=== PATIENT | female | born 1990 | race African-American/Black ===

== ENCOUNTER 2018-12-05 18:19 | Emergency (ER) | payer OTHER ==
[~2018-12-05] VITALS: Ht 160 cm; Wt 71.2 kg
[2018-12-05] MEDS ORDERED: Acetaminophen 500mg (ES) tab ORAL ONE (18:45)
[2018-12-05] MEDS ORDERED: DiphenhydrAMINE 50mg/ml Inj IVP ONE (18:45)
[2018-12-05] MEDS ORDERED: Metoclopramide 10mg/2ml Inj IVP ONE (18:45)
--- NOTE | 2018-12-05 18:45 | NUR ---
ED Nurse Note: PT WALKED IN C/O RLQ ABD PAIN STARTED TODAY, PT REPORTS SHE HAS BEEN GETTING TREATED FOR UTI. PT AA&OX4, GCS=15, SKIN WARM AND DRY, RESP EVEN AND UNLABORED, DENIES CONSTIPATION, REPORTS NAUSEA BUT NO ACTIVE VOMITING NOR DIARRHEA, AMBULATORY W/ STEADY GAIT, VSS, WILL CONT MONITOR.
[2018-12-05 18:53] LABS: APPEARANCE,URINE CLEAR; BILIRUBIN, URINE NEGATIVE (NEGATIVE); COLOR,URINE YELLOW; GLUCOSE, URINE (UA) NEGATIVE (NEGATIVE); KETONES,URINE NEGATIVE (NEGATIVE); LEUKOCYTE ESTERASE ,URINE 2+ (NEGATIVE); NITRITE,URINE NEGATIVE (NEGATIVE); PH,URINE 8 (4.5-8.0); PROTEIN,URINE NEGATIVE (NEGATIVE); UROBILINOGEN,URINE NORMAL MG/DL (0.0-1.0)
[2018-12-05 18:54] LABS: EOSINOPHILS % (AUTO) 3.2 % (0.0-3.0); HEMATOCRIT 35.4 % (37.0-47.0); HEMOGLOBIN 11.8 G/DL (12.0-16.0); LYMPHOCYTES % (AUTO) 18.5 % (20.0-45.0); MEAN CORPUSCULAR VOLUME 93 FL (80-99); MONOCYTES % (AUTO) 4.7 % (1.0-10.0); NEUTROPHILS % (AUTO) 71.6 % (45.0-75.0); PLATELET COUNT 348 K/UL (150-450); RED CELL DISTRIBUTION WIDTH 11.7 % (11.6-14.8); WHITE BLOOD COUNT 7.2 K/UL (4.8-10.8)
--- NOTE | 2018-12-05 18:55 | Emergency Room Report ---
History of Present Illness General Chief Complaint: Abdominal Pain Source: Patient Present Illness HPI 27-year-old female recently diagnosed with UTI, taking Macrobid, presents with suprapubic pain x1 day, no aggravating alleviating factors, pain is mild, described as sharp/achy, no radiation, no chest pain, shortness of breath, patient presents for evaluation Allergies: Coded Allergies: No Known Allergies (Unverified , 12/05/18) Patient History Past Medical History: see triage record Social History: Reports: drug use - Marijuana Last Menstrual Period: 11/18/18 Reviewed Nursing Documentation: PMH: Agreed; PSxH: Agreed Nursing Documentation-PMH Past Medical History: No Stated History Review of Systems Gastrointestinal: Reports: abdominal pain Genitourinary: Reports: dysuria, frequency All Other Systems: negative except mentioned in HPI Physical Exam Vital Signs Date Time Temp Pulse Resp B/P (MAP) Pulse Ox O2 Delivery O2 Flow Rate FiO2 12/05/18 18:28 98.4 86 18 104/51 (68) 95 Room Air Sp02 EP Interpretation: reviewed, normal General Appearance: well appearing, no apparent distress, alert Head: normocephalic, atraumatic Eyes: bilateral eye PERRL, bilateral eye EOMI ENT: uvula midline, moist mucus membranes Neck: supple, thyroid normal, supple/symm/no masses Respiratory: lungs clear, no respiratory distress, no retraction, no accessory muscle use Cardiovascular #1: normal peripheral pulses, regular rate, rhythm, no edema, no gallop, no murmur Gastrointestinal: soft, no guarding, no rebound, tenderness - Mild suprapubic tenderness, no CVA tenderness Musculoskeletal: normal inspection Neurologic: alert, oriented x3 Psychiatric: mood/affect normal Skin: no rash, warm/dry Medical Decision Making Diagnostic Impression: Primary Impression: UTI (urinary tract infection) Additional Impressions: Abdominal pain Fibroids ER Course 27-year-old female presents with suprapubic pain, on the differential includes UTI, appendicitis, fibroids, ovarian cyst Patient In no acute distress, pain is well controlled, repeat abdominal exams, patient's abdomen remains soft, CT abdomen pelvis shows fibroids, ultrasound is unremarkable as well Disposition home with return precautions, patient counseled to follow-up with OB /[employer] Laboratory Tests Test 12/05/18 17:34 12/05/18 18:34 Urine Color Yellow Urine Appearance Clear Urine pH 8 (4.5-8.0) Urine Specific [place] 1.010 (1.005-1.035) Urine Protein Negative (NEGATIVE) Urine Glucose (UA) Negative (NEGATIVE) Urine Ketones Negative (NEGATIVE) Urine Blood Negative (NEGATIVE) Urine Nitrite Negative (NEGATIVE) Urine Bilirubin Negative (NEGATIVE) Urine Urobilinogen Normal MG/DL (0.0-1.0) Urine Leukocyte Esterase 2+ (NEGATIVE) H Urine RBC 0 /HPF (0 - 2) Urine WBC 2-4 /HPF (0 - 2) Urine Squamous Epithelial Cells Few /LPF (NONE/OCC) Urine Bacteria Few /HPF (NONE) Urine HCG, Qualitative Negative (NEGATIVE) Urine Opiates Screen Negative (NEGATIVE) Urine Barbiturates Screen Negative (NEGATIVE) Phencyclidine (PCP) Screen Negative (NEGATIVE) Urine Amphetamines Screen Negative (NEGATIVE) Urine Benzodiazepines Screen Negative (NEGATIVE) Urine Cocaine Screen Negative (NEGATIVE) Urine Marijuana (THC) Screen Positive (NEGATIVE) H White Blood Count 7.2 K/UL (4.8-10.8) Red Blood Count 3.80 M/UL (4.20-5.40) L Hemoglobin 11.8 G/DL (12.0-16.0) L Hematocrit 35.4 % (37.0-47.0) L Mean Corpuscular Volume 93 FL (80-99) Mean Corpuscular Hemoglobin 31.1 PG (27.0-31.0) H Mean Corpuscular Hemoglobin Concent 33.3 G/DL (32.0-36.0) Red Cell Distribution Width 11.7 % (11.6-14.8) Platelet Count 348 K/UL (150-450) Mean Platelet Volume 6.4 FL (6.5-10.1) L Neutrophils (%) (Auto) 71.6 % (45.0-75.0) Lymphocytes (%) (Auto) 18.5 % (20.0-45.0) L Monocytes (%) (Auto) 4.7 % (1.0-10.0) Eosinophils (%) (Auto) 3.2 % (0.0-3.0) H Basophils (%) (Auto) 2.0 % (0.0-2.0) Sodium Level 136 MMOL/L (136-145) Potassium Level 4.1 MMOL/L (3.5-5.1) Chloride Level 103 MMOL/L (98-107) Carbon Dioxide Level 27 MMOL/L (21-32) Anion Gap 6 mmol/L (5-15) Blood Urea Nitrogen 11 mg/dL (7-18) Creatinine 0.8 MG/DL (0.55-1.30) Estimate Glomerular Filtration Rate > 60 mL/min (>60) Glucose Level 108 MG/DL (74-106) H Calcium Level 9.1 MG/DL (8.5-10.1) Total Bilirubin 0.2 MG/DL (0.2-1.0) Aspartate Amino Transferase (AST) 21 U/L (15-37) Alanine Aminotransferase (ALT) 31 U/L (12-78) Alkaline Phosphatase 79 U/L (46-116) Total Protein 7.2 G/DL (6.4-8.2) Albumin 3.7 G/DL (3.4-5.0) Globulin 3.5 g/dL Albumin/Globulin Ratio 1.1 (1.0-2.7) Lipase 110 U/L (73-393) Human Chorionic Gonadotropin, Quant 1 mIU/mL (1-6) CT/MRI/US Diagnostic Results CT/MRI/US Diagnostic Results : Impression CT Abdomen and pelvis: Multiple large fibroids up to 7 cm Pelvic US: Multiple large fibroids no acute processes Last Vital Signs Date Time Temp Pulse Resp B/P (MAP) Pulse Ox O2 Delivery O2 Flow Rate FiO2 12/05/18 18:28 98.4 86 18 104/51 (68) 95 Room Air Disposition: HOME, SELF-CARE Condition: Stable Scripts Naproxen* (NAPROSYN*) 250 Mg Tablet 250 MG ORAL BID PRN for For Pain, #20 TAB 0 Refills Prov: Dank Paige MD 12/05/18 Referrals: [facility] Patient Instructions: Abdominal Pain, Adult, Urinary Tract Infection, Easy-to- Read, Uterine Fibroids Additional Instructions: The patient was provided with discharge instructions, notified to follow-up with a primary care doctor and or specialist in the next 24-48 hours, and to return to the ED if they have worsening of their symptoms. Please note that this report is being documented using eJamming technology. This can lead to erroneous entry secondary to incorrect interpretation by the dictating instrument. Dank Paige MD Dec 05, 2018 18:55
[2018-12-05] MEDS ORDERED: Ketorolac 30mg Inj ONE (18:57)
[2018-12-05] MEDS ORDERED: Ketorolac 30mg Inj IV ONE (19:00)
[2018-12-05 19:02] LABS: ANION GAP 6 mmol/L (5-15); BLOOD UREA NITROGEN 11 mg/dL (7-18); CALCIUM 9.1 MG/DL (8.5-10.1); CARBON DIOXIDE 27 MMOL/L (21-32); CHLORIDE 103 MMOL/L (98-107); CREATININE 0.8 MG/DL (0.55-1.30); POTASSIUM 4.1 MMOL/L (3.5-5.1); SODIUM 136 MMOL/L (136-145)
[2018-12-05 19:07] LABS: ALANINE AMINOTRANSFERASE 31 U/L (12-78); ALBUMIN 3.7 G/DL (3.4-5.0); ALBUMIN/GLOBULIN RATIO 1.1 (1.0-2.7); ALKALINE PHOSPHATASE 79 U/L (46-116); ASPARTATE AMINO TRANSFERASE 21 U/L (15-37); BILIRUBIN,TOTAL 0.2 MG/DL (0.2-1.0)
[2018-12-05 19:09] VITALS: BP 107/59
[2018-12-05] MEDS ORDERED: Isovue-300 100ml vial INJ PRN (19:30)
--- NOTE | 2018-12-05 19:50 | NUR ---
ED Nurse Note: PT RESTING AT THIS TIME, VSS, BED LOWEST POSITION, WARM BLANKET PROVIDED FOR COMFORT, WILL CONT MONITOR.
[2018-12-05 21:53] VITALS: BP 108/75
--- NOTE | 2018-12-05 21:53 | NUR ---
Note eric in EDM - 12/06/18 at 0246 by [email or web address] ED Nurse Note: PT CLEARED TO BE D/C PER ERMD, PT DISCHARGE AND AFTERCARE INSTRUCTION PROVIDED W/ PRESCRIPTION, PT EDUCATION DONE VIA DISCUSSION AND HANDOUT, PT ADVISED TO FOLLOW UP WITH PCP OR RETURN TO ED IF CHANGES IN CONDITION, VSS, AMBULATORY W/ STEADY GAIT, LEFT W/ ALL BELONGINGS, IV D/C AND ID BAND REMOVED.
--- NOTE | 2018-12-05 21:53 | NUR ---
ED Nurse Note: PT CLEARED TO BE D/C PER ERMD, PT DISCHARGE AND AFTERCARE INSTRUCTION PROVIDED, PT EDUCATION DONE VIA DISCUSSION AND HANDOUT, PT ADVISED TO FOLLOW UP WITH PCP OR RETURN TO ED IF CHANGES IN CONDITION, VSS, AMBULATORY W/ STEADY GAIT, LEFT W/ ALL BELONGINGS, IV D/C AND ID BAND REMOVED.
[2018-12-05] MEDS ORDERED: NAPROXEN250 MG ORAL (22:03)
--- NOTE | 2018-12-06 10:07 | Diagnostic Imaging Report ---
Indication: Abdominal pain Technique: Continuous helical transaxial imaging of the abdomen and pelvis was obtained from the lung bases to the pubic symphysis during intravenous contrast administration. Coronal 2-D reformats were also obtained. Study obtained in a Siemens sensation [address] Automatic Exposure Control was utilized. Total Dose length Product (DLP): [address] Dose Index Volume (CTDIvol): 14.36, 0.15 mGy Comparison: None Findings: The lung bases are essentially clear. There is a focal fat in the liver near the falciform ligament. There is a small hiatal hernia. The spleen is unremarkable. Gallbladder is contracted. Kidneys are unremarkable bilaterally. There is no hydronephrosis. There is distention of part of the colon due to feces. The uterus is heterogeneously enhancing and enlarged secondary to multiple masses consistent with fibroids. Some calcification noted centrally involving one of the fibroids. There is a small amount of fluid in endometrial canal. The bladder is nondistended. There is trace pelvic ascites. Bowel gas pattern is nonobstructive. Appendix is partially seen and appears normal as such. IMPRESSION: Multiple uterine fibroids. Trace pelvic free fluid may be physiologic. The CT scanner at [facility] is accredited by the [employer] and the scans are performed using dose optimization techniques as appropriate to a performed exam including Automatic Exposure control.
--- NOTE | 2018-12-06 10:36 | Diagnostic Imaging Report ---
Indication:Lower abdominal and pelvic pain Technique: Grayscale and duplex Doppler imaging of the pelvis performed utilizing a transabdominal and endovaginal scan. Comparison: None Findings: The uterus is heterogeneous secondary to the presence of multiple fibroids. Endometrium is obscured and not well visualized on this examination. The largest single fibroid is ventral and measures approximately 8 cm in diameter. Endovaginal scanning is particularly limited. There is a small amount of free fluid in the cul-de-sac noted. Neither ovary is seen. Overall the uterus measures 13 x 10 x 7 cm. IMPRESSION: Multiple uterine fibroids. Obscured endometrium not evaluated adequately on this examination. Mild free fluid within the cul-de-sac. Nonvisualization of the ovaries
== END 2018-12-05 21:53 | disposition home or self-care (01) ==
LOC: EMR 18:51
DX: N39.0 Urinary tract infection, site not specified (principal); R10.9 Unspecified abdominal pain; D25.9 Leiomyoma of uterus, unspecified
CPT/HCPCS: 36415; 74177; 76830; 76856; 80053; 80307; 81003; 81025; 83690; 84702; 85025; 96361; 96374; 96375; 99284; J1200; J1885; J2765; Q9967